=== PATIENT | female | born 1955 | race Two or more races ===

== ENCOUNTER 2020-12-11 12:26 | Emergency (ER) | payer OTHER ==
[~2020-12-11] VITALS: Ht 162.6 cm; Wt 84.1 kg
[2020-12-11 14:09] VITALS: BP 173/93
== END 2020-12-11 17:21 | disposition left against medical advice (07) ==
LOC: ER 12:27
DX: M25.532 Pain in left wrist (principal); Z53.21 Procedure and treatment not carried out due to patient leaving prior to being seen by health care provider